=== PATIENT | female | born 2000 | race Caucasian/White ===

== ENCOUNTER → 2019-01-21 | Emergency (ER) | payer OTHER ==
[~2019-01-21] VITALS: Ht 162.6 cm; Wt 83.8 kg
[~2019-01-21] MED LIST: CEPH-443 PO; HC30CR25 TOP
[2019-01-21 18:45] VITALS: BP 121/25; PULSE 74; RESP 20; Ht 162.6 cm; Wt 83.8 kg
--- NOTE | 2019-01-21 23:56 | ERD ---
ER Documentation Chief Complaint Chief Complaint STATES BLISTERS TO RT INNER THIGH AND GENITAL AREA X1 WEEK HPI Patient is a 18-year-old female with no medical problems who presents with bl isters. The patient said that she has blisters to her vaginal area. They started after she was shaving her vaginal area. The symptoms started 1 week ago. She tried an anti-itch lotion but she said this might of made it worse. She denies fevers. She said that she has not been sexually active for the past 4 months. She says that there is slightly painful. She does not know the name of her primary doctor. ROS All systems reviewed and are negative except as per history of present illness. Medications Home Meds Active Scripts Hydrocortisone* Topical (Hydrocortisone* Topical) 2.5%-28.3 Gm Cream..g., 1 APPLIC TOP BID, #1 TUB Prov:PACHECO ARROYO MD 01/21/19 Cephalexin* (Keflex*) 500 Mg Capsule, 500 MG PO QID for 7 Days, CAP Prov:PACHECO ARROYO MD 01/21/19 Allergies Allergies: Coded Allergies: No Known Allergy (Unverified , 01/21/19) PMhx/Soc History of Surgery: Yes (eye sx) Hx Alcohol Use: No Hx Substance Use: No Hx Tobacco Use: No Smoking Status: Never smoker FmHx Family History: No diabetes Physical Exam Vitals Vital Signs Date Temp Pulse Resp B/P (MAP) Pulse Ox O2 O2 Flow FiO2 Time Delivery Rate 01/21/19 97.6 74 20 121/25 98 18:45 (57) Physical Exam Const: No acute distress Head: Atraumatic Eyes: Normal Conjunctiva ENT: Normal External Ears, Nose and Mouth. Neck: Full range of motion. No meningismus. Resp: Clear to auscultation bilaterally Cardio: Regular rate and rhythm, no murmurs Abd: Soft, non tender, non distended. Normal bowel sounds Skin: Folliculitis to the superior pubic region consistent, no vesicular lesions Back: No midline or flank tenderness Ext: No cyanosis, or edema Neur: Awake and alert Psych: Normal Mood and Affect Results 24 hrs Laboratory Tests Test 01/21/19 19:23 01/21/19 19:25 POC Beta HCG, Qualitative NEGATIVE Bedside Urine pH (LAB) 5.5 Bedside Urine Protein (LAB) Negative Bedside Urine Glucose (UA) Negative Bedside Urine Ketones (LAB) Negative Bedside Urine Blood Negative Bedside Urine Nitrite (LAB) Negative Bedside Urine Leukocyte Esterase (L 1+ Procedures/MDM Patient is a 18-year-old female presents with what appears to be acute folliculitis. I will treat with Keflex and I do cortisone cream. She will need to follow-up with her primary doctor within 1 week for reevaluation. I doubt herpes infection and there does not appear to be vesicular lesions at this time. Patient can return for any worsening symptoms. Departure Diagnosis: Primary Impression: Folliculitis Condition: Fair Patient Instructions: Folliculitis Additional Instructions: Call your primary care doctor TOMORROW for an appointment during the next 1 WEEK.Tell the alumni secretary that you were referred from this facility.See the doctor sooner or return here if your condition worsens before your appointment time. PACHECO ARROYO MD Jan 21, 2019 23:56
== END | disposition home or self-care (01) ==
LOC: FTE 18:38
DX: L73.9 Follicular disorder, unspecified (principal)
CPT/HCPCS: 81003; 81025; Z7502; 99283